=== PATIENT | female | born 1955 | race Hispanic/Latino ===

== ENCOUNTER → 2017-12-25 | Outpatient (CLI) | payer OTHER, MEDICARE ==
[~2017-12-25] MED LIST: ALBU8.5H8 IH; ASPI-1012 PO; DILT120C57 PO; FAMO20TA8 PO; HYDROXYZ HCL PO; MG T1TAB3 PO; NABU500T3 PO; NITR0.4T SL; PANT40TA25 PO; POTA20TA12 PO; PRAV20TA4 PO; PROP225C11 PO; vitamin b 12 PO
== END ==
LOC: RAH 10:19
PROVIDERS: ATTEND Family Medicine
DX: Z12.31 Encounter for screening mammogram for malignant neoplasm of breast (principal)
CPT/HCPCS: 77067

== ENCOUNTER → 2018-07-04 | Outpatient (CLI) | payer OTHER ==
[~2018-07-04] MED LIST changes: +AEC81 PO; +CYANOCOBALAMIN PO; +DILT180C63 PO; +DILTIAZEM ER PO; +HYDR-3421 PO; +NITR0.4T50 SL; +NITROGLYCERINE SL; +POTA20TA82 PO
== END | disposition home or self-care (01) ==
LOC: OIH 12:04
PROVIDERS: ATTEND Internal Medicine Cardiovascular Disease
DX: Z13.6 Encounter for screening for cardiovascular disorders (principal)
CPT/HCPCS: 75571

== ENCOUNTER → 2018-12-26 | Outpatient (CLI) | payer OTHER ==
[~2018-12-26] MED LIST changes: +DILT-3 PO; -DILT120C57 PO
== END | disposition home or self-care (01) ==
LOC: RAH 07:36
PROVIDERS: ATTEND Family Medicine
DX: Z12.31 Encounter for screening mammogram for malignant neoplasm of breast (principal)
CPT/HCPCS: 77067

== ENCOUNTER 2019-07-25 19:48 | Emergency (ER) | payer OTHER, MEDICARE ==
[~2019-07-25 19:48] MED LIST changes: -DILT-3 PO; +DILT120C95 PO
[2019-07-25] MEDS ORDERED: ONDANSETRON HCL 4 MG/2 ML VIAL ONE (20:19)
[2019-07-25 20:36] LABS: EOSINOPHILS % (AUTO) 4.1 % (0.0-8.0); HEMATOCRIT 42.3 % (36-48); MEAN CORPUSCULAR HEMOGLOBIN 28.2 pg (27.0-33.0); MEAN CORPUSCULAR VOLUME 85.7 fL (79-99); MONOCYTES % (AUTO) 7.5 % (3.0-13.0); NEUTROPHILS % (AUTO) 50.4 % (40.0-77.0); PLATELET COUNT (AUTO) 192 K/uL (130-400); RED BLOOD CELL COUNT(AUTO) 4.94 MIL/uL (4.00-5.50); RED CELL DISTRIBUTION WIDTH 15.7 % (11.0-15.5); WHITE BLOOD COUNT (AUTO) 9.1 K/uL (4.8-10.8)
[2019-07-25 20:57] LABS: INR 0.99 (0.85-1.15); PARTIAL THROMBOPLASTIN TIME 27.3 SEC (26.3-35.5); PROTHROMBIN TIME 10.4 SEC (9.6-11.6)
[2019-07-25 21:00] LABS: CREATININE 0.7 mg/dL (0.5-1.5); POTASSIUM 3.9 mmol/L (3.5-5.1)
[2019-07-25 21:04] LABS: ALBUMIN 3.8 g/dL (3.5-5.0); BILIRUBIN,TOTAL 0.7 mg/dL (0.2-1.0); TOTAL PROTEIN, SERUM 7.6 g/dL (6.0-8.3)
[2019-07-25 22:03] LABS: APPEARANCE,URINE Clear (CLEAR); BILIRUBIN,URINE Negative (NEGATIVE); COLOR,URINE Yellow (YELLOW); GLUCOSE, URINE (UA) Negative (NEGATIVE); KETONES,URINE Negative (NEGATIVE); LEUKOCYTE ESTERASE ,URINE Negative (NEGATIVE); NITRATE,URINE Negative (NEGATIVE); OCCULT BLOOD,URINE Negative (NEGATIVE); PROTEIN,URINE Negative (NEGATIVE); UROBILINOGEN,URINE 0.2 mg/dL (0.2-1.0)
[2019-07-25 22:11] LABS: AMPHET/METH SCREEN,URINE NEGATIVE (NEGATIVE); BARBITURATE SCREEN, URINE NEGATIVE (NEGATIVE); BENZODIAZEPINES SCREEN,URINE NEGATIVE (NEGATIVE); CANNABINOID SCREEN,URINE NEGATIVE (NEGATIVE); COCAINE SCREEN,URINE NEGATIVE (NEGATIVE); OPIATE SCREEN,URINE NEGATIVE (NEGATIVE); PHENCYCLIDINE SCREEN,URINE NEGATIVE (NEGATIVE)
[2019-07-25] MEDS ORDERED: FAMOTIDINE/PF 20 MG/2 ML VIAL IV ONE (22:36)
[2019-07-25] MEDS ORDERED: HYOSCYAMINE SULFATE 0.125 MG TAB.SUBL SL ONE (22:36)
== END 2019-07-25 22:50 | disposition home or self-care (01) ==
LOC: EDH 19:48
DX: R10.13 Epigastric pain (principal); R51 Headache; R11.2 Nausea with vomiting, unspecified; E78.5 Hyperlipidemia, unspecified; I10 Essential (primary) hypertension; F41.9 Anxiety disorder, unspecified; Z90.710 Acquired absence of both cervix and uterus
CPT/HCPCS: 36415; 71045; 74176; 80053; 80305; 81003; 82550; 83690; 84484; 85025; 85610; 85730; 86677; 87804 ×2; 93005; 96374; 96375; 99285; J2405; J3490

== ENCOUNTER → 2020-01-07 | Outpatient (CLI) | payer OTHER, MEDICARE ==
[~2020-01-07] MED LIST changes: +NABU-136 PO; -NABU500T3 PO; -PANT40TA25 PO; +PANT40TA54 PO
== END | disposition home or self-care (01) ==
LOC: RAH 10:00
PROVIDERS: ATTEND Family Medicine
DX: Z12.31 Encounter for screening mammogram for malignant neoplasm of breast (principal)
CPT/HCPCS: 77067

== ENCOUNTER → 2020-07-18 | Outpatient (CLI) | payer OTHER, MEDICARE | END | disposition home or self-care (01) | LOC: SHCH 10:00 | PROVIDERS: ATTEND Internal Medicine Cardiovascular Disease | DX: R01.1 Cardiac murmur, unspecified (principal) | CPT/HCPCS: 93306; 93356 ==

== ENCOUNTER 2020-08-16 14:14 | Inpatient (IN) | payer OTHER, MEDICARE ==
[~2020-08-16] VITALS: Ht 170.2 cm; Wt 148.7 kg
[2020-08-16 15:35] LABS: BASOPHILS % (AUTO) 0.6 % (0.0-5.0); EOSINOPHILS % (AUTO) 3.4 % (0.0-8.0); HEMATOCRIT 44.2 % (36-48); LYMPHOCYTES % (AUTO) 29.3 % (21.0-51.0); MEAN CORPUSCULAR HEMOGLOBIN 25.7 pg (27.0-33.0); MEAN CORPUSCULAR HGB CONC 30.3 g/dL (32.0-36.0); MEAN CORPUSCULAR VOLUME 84.7 fL (79-99); NEUTROPHILS % (AUTO) 60.6 % (40.0-77.0); PLATELET COUNT (AUTO) 249 K/uL (130-400); RED BLOOD CELL COUNT(AUTO) 5.22 MIL/uL (4.00-5.50); RED CELL DISTRIBUTION WIDTH 15.2 % (11.0-15.5); WHITE BLOOD COUNT (AUTO) 8.2 K/uL (4.8-10.8)
[2020-08-16 15:47] LABS: ABG BASE EXCESS 4.7 mmol/L (-2.0-3.0); ABG HCO3 32.4 mmol/L (21.0-28.0); ABG OXYGEN SATURATION 88.8 % (95.0-99.0); ABG PCO2 61 mmHg (32-45)
[2020-08-16 15:47] LABS: CREATININE 0.6 mg/dL (0.5-1.5); INR 0.95 (0.85-1.15); PARTIAL THROMBOPLASTIN TIME 24.8 SEC (26.3-35.5); POTASSIUM 3.6 mmol/L (3.5-5.1); PROTHROMBIN TIME 10.3 SEC (9.6-11.6)
[2020-08-16 15:51] LABS: ALBUMIN 3.9 g/dL (3.5-5.0); BILIRUBIN,TOTAL 0.5 mg/dL (0.2-1.0); TOTAL PROTEIN, SERUM 8.1 g/dL (6.0-8.3)
[2020-08-16] MEDS ORDERED: METHYLPREDNISOLONE SOD SUCC 125MG/2ML VIAL ONE (15:51)
[2020-08-16] MEDS ORDERED: CEFTRIAXONE SODIUM 1 GM ONE (15:51)
[2020-08-16] MEDS ORDERED: SODIUM CHLORIDE 0.9% 50 ML IV ONE (15:52)
[2020-08-16] MEDS ORDERED: IPRATROPIUM/ALBUTEROL SULFATE 3 ML SOLUTION IH ONE (15:53)
[2020-08-16 16:10] LABS: B-TYPE NATRIURETIC PEPTIDE 25 pg/mL (0-100)
[2020-08-16] MEDS ORDERED: AZITHROMYCIN 500MG+NS 250ML 250 ML IV ONE (20:29)
[2020-08-16] MEDS ORDERED: SODIUM CHLORIDE 0.9% 10 ML VIAL IVP SCH (21:45)
[2020-08-16] MEDS ORDERED: ONDANSETRON HCL 4 MG/2 ML VIAL IVP PRN (21:45)
[2020-08-16] MEDS ORDERED: ACETAMINOPHEN 325 MG TAB PO PRN ×2 (21:45)
[2020-08-16] MEDS ORDERED: IPRATROPIUM/ALBUTEROL SULFATE 3 ML SOLUTION IH SCH (22:00)
[2020-08-17 06:39] LABS: BASOPHILS % (AUTO) 0.2 % (0.0-5.0); HEMATOCRIT 44.3 % (36-48); LYMPHOCYTES % (AUTO) 13.1 % (21.0-51.0); MEAN CORPUSCULAR HEMOGLOBIN 25.6 pg (27.0-33.0); MEAN CORPUSCULAR HGB CONC 30.2 g/dL (32.0-36.0); MEAN CORPUSCULAR VOLUME 84.5 fL (79-99); MONOCYTES % (AUTO) 0.7 % (3.0-13.0); NEUTROPHILS % (AUTO) 85.6 % (40.0-77.0); PLATELET COUNT (AUTO) 226 K/uL (130-400); RED BLOOD CELL COUNT(AUTO) 5.24 MIL/uL (4.00-5.50); RED CELL DISTRIBUTION WIDTH 15.1 % (11.0-15.5); WHITE BLOOD COUNT (AUTO) 5.4 K/uL (4.8-10.8)
[2020-08-17 06:44] LABS: CREATININE 0.7 mg/dL (0.5-1.5); POTASSIUM 4.1 mmol/L (3.5-5.1)
[2020-08-17 06:51] LABS: ALBUMIN 3.6 g/dL (3.5-5.0); BILIRUBIN,TOTAL 0.4 mg/dL (0.2-1.0); TOTAL PROTEIN, SERUM 7.8 g/dL (6.0-8.3)
[2020-08-17 08:00] LABS: APPEARANCE,URINE Clear (CLEAR); BILIRUBIN,URINE Negative (NEGATIVE); COLOR,URINE Yellow (YELLOW); GLUCOSE, URINE (UA) Negative (NEGATIVE); KETONES,URINE 15 mg/dL (NEGATIVE); LEUKOCYTE ESTERASE ,URINE Negative (NEGATIVE); NITRATE,URINE Negative (NEGATIVE); OCCULT BLOOD,URINE Negative (NEGATIVE); PH,URINE 5.5 (5.0-8.0); PROTEIN,URINE 300 mg/dL (NEGATIVE)
[2020-08-17 08:56] LABS: BACTERIA,URINE Rare /HPF (None Seen); RBC,URINE 0-1 /HPF (0-1); WBC,URINE 0-1 /HPF (0-1)
[2020-08-17 08:57] LABS: MUCUS,URINE Few LPF (None Seen); SQUAMOUS EPITHELIAL CELL,UR Rare /HPF (0-2)
[2020-08-17] MEDS ORDERED: DEXTROSE 50%-WATER 50 ML DISP.SYRIN IV PRN (10:00)
[2020-08-17] MEDS ORDERED: GLUCAGON 1MG KIT 1 MG ML IM PRN (10:00)
[2020-08-17] MEDS ORDERED: TRAMADOL HCL 50 MG TABLET PO PRN (10:00)
[2020-08-17] MEDS ORDERED: HYDROXYZINE HCL 25 MG TABLET PO PRN (10:00)
[2020-08-17] MEDS ORDERED: ASPIRIN 81MG TAB.CHEW ONE (10:19)
[2020-08-17] MEDS ORDERED: DILTIAZEM HCL 120 MG CAP.SR.24H PO ONE (10:19)
[2020-08-17] MEDS ORDERED: INSULIN HUMULIN R 100 UNIT/ML 3ML ONE (10:19)
[2020-08-17] MEDS ORDERED: SIMVASTATIN 20 MG TABLET PO SCH ×2 (10:45→21:00)
[2020-08-17] MEDS ORDERED: ALBUTEROL INHALER 90MCG/INH IH PRN (12:30)
[2020-08-17 15:52] VITALS: BP 159/93
[2020-08-17] MEDS ORDERED: CEFTRIAXONE SODIUM 1 GM IVP SCH (16:00)
[2020-08-17] MEDS: INSULIN HUMULIN R 100 UNIT/ML 3ML SQ SCH ×3 (16:30→21:00)
[2020-08-17] MEDS: PANTOPRAZOLE SODIUM 40 MG TABLET.DR PO SCH (16:41)
[2020-08-17] MEDS: ASPIRIN 81 MG EC TAB PO SCH (16:41)
[2020-08-17] MEDS: ENOXAPARIN SODIUM 40 MG/0.4 ML SYRINGE SQ SCH (16:41)
[2020-08-17] MEDS: DILTIAZEM HCL 120 MG CAP.SR.24H PO SCH (16:42)
[2020-08-17] MEDS: ALBUTEROL INHALER 90MCG/INH IH SCH ×4 (16:42→22:00)
[2020-08-17] MEDS ORDERED: ERGO500014 PO (17:49)
[2020-08-17] MEDS ORDERED: NABU-136 PO (17:49)
[2020-08-17] MEDS ORDERED: FURO20TA4 PO (17:49)
[2020-08-17] MEDS ORDERED: DILT-116 PO (17:49)
[2020-08-17] MEDS ORDERED: IRON18TA PO (17:49)
[2020-08-17] MEDS ORDERED: NITR0.4T50 SL (17:49)
[2020-08-17] MEDS ORDERED: AEC81 PO (17:49)
[2020-08-17] MEDS ORDERED: HYOS-14 PO (17:49)
[2020-08-17] MEDS ORDERED: PANT40TA55 PO (17:49)
[2020-08-17] MEDS ORDERED: PROP225C8 PO (17:49)
[2020-08-17] MEDS ORDERED: HYDR-3421 PO (17:49)
[2020-08-17] MEDS ORDERED: POTA-79 PO (17:49)
[2020-08-17] MEDS ORDERED: PRAV40TA3 PO (17:49)
[2020-08-17 19:19] VITALS: BP 129/73
[2020-08-17] MEDS ORDERED: AZITHROMYCIN 500MG+NS 250ML 250 ML IV SCH (20:30)
[2020-08-17] MEDS: METHYLPREDNISOLONE SOD SUCC 40MG/ML 1ML IVP SCH (21:37)
[2020-08-17 23:35] VITALS: BP 116/61
[2020-08-18] MEDS: ALBUTEROL INHALER 90MCG/INH IH SCH ×3 (02:00→10:50)
[2020-08-18 03:40] VITALS: BP 130/62
[2020-08-18 05:34] LABS: MEAN CORPUSCULAR HEMOGLOBIN 25.8 pg (27.0-33.0); MEAN CORPUSCULAR HGB CONC 30.5 g/dL (32.0-36.0); MEAN CORPUSCULAR VOLUME 84.7 fL (79-99); RED BLOOD CELL COUNT(AUTO) 4.84 MIL/uL (4.00-5.50); WHITE BLOOD COUNT (AUTO) 9.2 K/uL (4.8-10.8)
[2020-08-18 06:05] LABS: CREATININE 0.6 mg/dL (0.5-1.5); POTASSIUM 4.6 mmol/L (3.5-5.1)
[2020-08-18] MEDS: INSULIN HUMULIN R 100 UNIT/ML 3ML SQ SCH ×2 (07:30→11:30)
[2020-08-18 07:42] VITALS: BP 118/53
[2020-08-18] MEDS: ENOXAPARIN SODIUM 40 MG/0.4 ML SYRINGE SQ SCH (09:17)
[2020-08-18] MEDS: METHYLPREDNISOLONE SOD SUCC 40MG/ML 1ML IVP SCH (09:17)
[2020-08-18] MEDS: ASPIRIN 81 MG EC TAB PO SCH (09:17)
[2020-08-18] MEDS: PANTOPRAZOLE SODIUM 40 MG TABLET.DR PO SCH (09:17)
[2020-08-18] MEDS: DILTIAZEM HCL 120 MG CAP.SR.24H PO SCH (09:37)
[2020-08-18] MEDS ORDERED: PRED20TA3 PO (11:36)
[2020-08-18] MEDS ORDERED: DOXY100C40 PO (11:36)
[2020-08-18 12:20] VITALS: BP 127/47
== END 2020-08-18 13:30 | disposition home or self-care (01) | DRG 177 ==
LOC: EDH 14:14 → EDHIP 18:59 → 2AH 08-17 15:24
PROVIDERS: ADMIT Internal Medicine Critical Care Medicine; ATTEND Internal Medicine Critical Care Medicine
PROC: 5A09357 Assistance with Respiratory Ventilation, Less than 24 Consecutive Hours, Continuous Positive Airway Pressure (ICD-10-PCS; principal; 2020-08-18)
DX: J15.6 Pneumonia due to other Gram-negative bacteria (principal); J96.01 Acute respiratory failure with hypoxia; J44.1 Chronic obstructive pulmonary disease with (acute) exacerbation; J45.901 Unspecified asthma with (acute) exacerbation; Z68.43 Body mass index [BMI] 50.0-59.9, adult; J44.0 Chronic obstructive pulmonary disease with (acute) lower respiratory infection; E11.9 Type 2 diabetes mellitus without complications; K29.70 Gastritis, unspecified, without bleeding; R51.9 Headache, unspecified; I10 Essential (primary) hypertension; Z20.828 Contact with and (suspected) exposure to other viral communicable diseases; E78.5 Hyperlipidemia, unspecified; E66.9 Obesity, unspecified; F41.9 Anxiety disorder, unspecified; Z86.19 Personal history of other infectious and parasitic diseases; Z99.81 Dependence on supplemental oxygen; Z90.49 Acquired absence of other specified parts of digestive tract; Z90.710 Acquired absence of both cervix and uterus; Z79.899 Other long term (current) drug therapy; Z79.4 Long term (current) use of insulin; Z79.82 Long term (current) use of aspirin
CPT/HCPCS: 36415; 36600; 71045; 71250; 80048; 80053; 81001; 82550; 82803; 82948; 83605; 83880; 84484; 85025; 85027; 85610; 85730; 87040; 87426; 87804; 87880; 93005; 94640; 94660; G0378; J0456; J0696; J1650; J1815; J2920; J2930; U0003

== ENCOUNTER → 2021-01-30 | Outpatient (CLI) | payer OTHER, MEDICARE ==
[~2021-01-30] MED LIST changes: -ALBU8.5H8 IH; -ASPI-1012 PO; -CYANOCOBALAMIN PO; +DILT-116 PO; -DILT120C95 PO; -DILT180C63 PO; -DILTIAZEM ER PO; +DOXY100C40 PO; +ERGO500014 PO; -FAMO20TA8 PO; +FURO20TA4 PO; -HYDROXYZ HCL PO; +HYOS-14 PO; +IRON18TA PO; -MG T1TAB3 PO; -NABU-136 PO; +NABU-141 PO; -NITR0.4T SL; -NITROGLYCERINE SL; -PANT40TA54 PO; +PANT40TA55 PO; +POTA-79 PO; -POTA20TA12 PO; -POTA20TA82 PO; -PRAV20TA4 PO; +PRAV40TA3 PO; +PRED20TA3 PO; -PROP225C11 PO; +PROP225C8 PO; -vitamin b 12 PO
== END | disposition home or self-care (01) ==
LOC: RAH 13:40
PROVIDERS: ATTEND Family Medicine
DX: Z12.31 Encounter for screening mammogram for malignant neoplasm of breast (principal)
CPT/HCPCS: 77067

== ENCOUNTER → 2021-07-12 | Outpatient (CLI) | payer OTHER ==
[~2021-07-12] VITALS: Ht 17.8 cm; Wt 151.0 kg
[~2021-07-12] MED LIST changes: +DOXY-336 PO; -DOXY100C40 PO; -ERGO500014 PO; +ERGO500093 PO
== END | disposition home or self-care (01) ==
LOC: DTH 10:42
PROVIDERS: ATTEND Surgery
DX: G47.33 Obstructive sleep apnea (adult) (pediatric) (principal); I10 Essential (primary) hypertension; M19.91 Primary osteoarthritis, unspecified site; E78.00 Pure hypercholesterolemia, unspecified; K21.9 Gastro-esophageal reflux disease without esophagitis; E66.01 Morbid (severe) obesity due to excess calories
CPT/HCPCS: 97802

== ENCOUNTER 2021-07-17 06:45 | Day surgery (SDC) | payer OTHER, MEDICARE ==
[~2021-07-17] VITALS: Ht 170.2 cm; Wt 149.7 kg
[2021-07-17] MEDS ORDERED: 0.9%NACL 1000ML 1,000 ML IV ONE (07:25)
[2021-07-17] MEDS ORDERED: GLYCOPYRROLATE 1 MG/5 ML SYRINGE ONE (08:01)
[2021-07-17] MEDS ORDERED: PROPOFOL 10 MG/ML 20ML VIAL IV ONE (08:01)
[2021-07-17] MEDS ORDERED: MIDAZOLAM HCL 1 MG/ML 2ML VIAL ONE (08:01)
[2021-07-17] MEDS ORDERED: KETAMINE 50MG/ML SYRINGE 50 MG/ML DISP.SYRIN IV ONE (08:01)
[2021-07-17] MEDS ORDERED: LIDOCAINE PF 100MG/5ML (2%) SYRINGE 5ML ONE (08:01)
[2021-07-17 08:10] VITALS: BP 147/80
[2021-07-17 08:48] VITALS: BP 156/92
[2021-07-17 08:53] VITALS: BP 181/82
[2021-07-17 08:58] VITALS: BP 134/74
[2021-07-17 09:03] VITALS: BP 127/82
[2021-07-17 09:08] VITALS: BP 135/72
== END 2021-07-17 09:18 | disposition home or self-care (01) ==
LOC: DAH 06:45 → ENDO 06:45
PROVIDERS: ATTEND Surgery
DX: K21.9 Gastro-esophageal reflux disease without esophagitis (principal); Z20.822 Contact with and (suspected) exposure to COVID-19; J45.909 Unspecified asthma, uncomplicated; E66.01 Morbid (severe) obesity due to excess calories; E78.5 Hyperlipidemia, unspecified; I10 Essential (primary) hypertension; Z90.49 Acquired absence of other specified parts of digestive tract; Z90.710 Acquired absence of both cervix and uterus; Z98.890 Other specified postprocedural states; Z82.49 Family history of ischemic heart disease and other diseases of the circulatory system; Z80.7 Family history of other malignant neoplasms of lymphoid, hematopoietic and related tissues; Z68.43 Body mass index [BMI] 50.0-59.9, adult
CPT/HCPCS: 43235; 71045; 87635; 93005; A4215 ×2; A4221; A4222; A4223; A4606; A4620; A4663; C9803; J2001; J2250; J2704; J3490 ×2; J7030

== ENCOUNTER → 2021-09-04 | Outpatient (CLI) | payer OTHER | END | disposition home or self-care (01) | LOC: DTH 10:18 | PROVIDERS: ATTEND Surgery | DX: Z71.3 Dietary counseling and surveillance (principal); G47.33 Obstructive sleep apnea (adult) (pediatric); E66.01 Morbid (severe) obesity due to excess calories; I10 Essential (primary) hypertension; M19.91 Primary osteoarthritis, unspecified site; E78.00 Pure hypercholesterolemia, unspecified; K21.9 Gastro-esophageal reflux disease without esophagitis; Z68.43 Body mass index [BMI] 50.0-59.9, adult | CPT/HCPCS: 97803 ==

== ENCOUNTER 2021-10-02 05:11 | Emergency (ER) | payer OTHER, MEDICARE ==
[~2021-10-02] VITALS: Ht 170.2 cm; Wt 149.7 kg
[2021-10-02 05:21] VITALS: BP 155/74
[2021-10-02] MEDS ORDERED: ACETAMINOPHEN 500 MG TABLET ONE (05:30)
[2021-10-02] MEDS ORDERED: ACETAMINOPHEN 500 MG TABLET PO ONE (05:30)
[2021-10-02] MEDS ORDERED: IPRATROPIUM/ALBUTEROL SULFATE 3 ML SOLUTION IH ONE (06:00)
[2021-10-02] MEDS ORDERED: ACET-66 PO (06:16)
[2021-10-02] MEDS ORDERED: ALBU18HF7 IH (06:16)
[2021-10-02] MEDS ORDERED: OSEL75 PO (06:16)
[2021-10-02] MEDS ORDERED: PRED5TAB PO (06:16)
[2021-10-02] MEDS ORDERED: ALBUTEROL 0.083% 2.5 MG/3 ML INH IH SCH (06:30)
== END 2021-10-02 06:54 | disposition home or self-care (01) ==
LOC: EDH 05:11
DX: J10.1 Influenza due to other identified influenza virus with other respiratory manifestations (principal); Z20.822 Contact with and (suspected) exposure to COVID-19; J45.909 Unspecified asthma, uncomplicated; I10 Essential (primary) hypertension; F41.9 Anxiety disorder, unspecified; E78.00 Pure hypercholesterolemia, unspecified; Z79.1 Long term (current) use of non-steroidal anti-inflammatories (NSAID); Z79.52 Long term (current) use of systemic steroids; Z79.82 Long term (current) use of aspirin; Z79.899 Other long term (current) drug therapy; Z90.49 Acquired absence of other specified parts of digestive tract
CPT/HCPCS: 71045; 87635; 87804 ×2; 87880; 93005; 94640; 99285; C9803

== ENCOUNTER 2022-01-08 06:45 | Inpatient (IN) | payer OTHER, MEDICARE ==
[2022-01-02 11:59] LABS: BASOPHILS % (AUTO) 0.9 % (0.0-5.0); EOSINOPHILS % (AUTO) 3.5 % (0.0-8.0); HEMATOCRIT 40.8 % (36-48); LYMPHOCYTES % (AUTO) 36.9 % (21.0-51.0); MEAN CORPUSCULAR HGB CONC 29.9 g/dL (32.0-36.0); MEAN CORPUSCULAR VOLUME 80.2 fL (79-99); MONOCYTES % (AUTO) 6.8 % (3.0-13.0); NEUTROPHILS % (AUTO) 51.6 % (40.0-77.0); PLATELET COUNT (AUTO) 218 K/uL (130-400); RED BLOOD CELL COUNT(AUTO) 5.09 MIL/uL (4.00-5.50); WHITE BLOOD COUNT (AUTO) 6.9 K/uL (4.8-10.8)
[2022-01-02 12:17] LABS: CREATININE 0.5 mg/dL (0.5-1.5); POTASSIUM 4.1 mmol/L (3.5-5.1)
[2022-01-02 12:51] LABS: INR 1.06 (0.85-1.15); PARTIAL THROMBOPLASTIN TIME 25.5 SEC (26.3-35.5)
[~2022-01-08] VITALS: Ht 170.2 cm; Wt 148.3 kg
[2022-01-08] VITALS (25 sets, daily range): BP systolic 142–190; BP diastolic 40–81
[2022-01-08] MEDS: CEFAZOLIN SODIUM 1 GM VIAL IVP SCH ×4 (06:00→19:14)
[~2022-01-08 06:45] MED LIST changes: +ALBU0.63 IH; +CHOL-34 PO; +CYAN-52 PO; -DOXY-336 PO; -ERGO500093 PO; -HYOS-14 PO; -IRON18TA PO; +MONT-39 PO; -NABU-141 PO; -NITR0.4T50 SL; -PRED20TA3 PO
[2022-01-08] MEDS ORDERED: LACTATED RINGERS 1000ML 1,000 ML IV ONE (07:01)
[2022-01-08] MEDS ORDERED: FAMOTIDINE 20MG VIAL IV ONE (07:27)
[2022-01-08] MEDS ORDERED: HYDROMORPHONE 1 MG INJ ONE (07:28)
[2022-01-08] MEDS ORDERED: PROPOFOL 10 MG/ML 20ML VIAL IV ONE ×2 (07:35→10:31)
[2022-01-08] MEDS ORDERED: ROCURONIUM 10MG/1ML SYR 10 MG/ML ML ONE (07:35)
[2022-01-08] MEDS ORDERED: SUCCINYLCHOLINE 200MG/10ML SYR ONE (07:35)
[2022-01-08] MEDS ORDERED: FENTANYL CITRATE PF 50 MCG/1 ML 5ML AMP IV ONE (07:35)
[2022-01-08] MEDS ORDERED: GLYCOPYRROLATE 1 MG/5 ML SYRINGE ONE (07:35)
[2022-01-08] MEDS ORDERED: LIDOCAINE PF 100MG/5ML (2%) SYRINGE 5ML ONE (07:35)
[2022-01-08] MEDS ORDERED: MIDAZOLAM HCL 1 MG/ML 2ML VIAL ONE (07:35)
[2022-01-08] MEDS ORDERED: NEOSTIGMINE 5MG/5ML SYR IV ONE (09:38)
[2022-01-08] MEDS ORDERED: ONDANSETRON 4MG INJ ONE ×2 (09:38→10:31)
[2022-01-08] MEDS ORDERED: ALBUTEROL INHALER 90MCG/INH IH ONE (09:51)
[2022-01-08] MEDS ORDERED: BUPIVACAINE/PF 0.5% 30ML VIAL ONE (10:36)
[2022-01-08] MEDS: LACTATED RINGERS 1000ML 1,000 ML IV SCH ×2 (11:00→18:08)
[2022-01-08] MEDS ORDERED: KETOROLAC 30MG VIAL (30MG/ML) IM PRN (11:00)
[2022-01-08] MEDS ORDERED: ONDANSETRON 4MG INJ IVP PRN (11:00)
[2022-01-08] MEDS ORDERED: MORPHINE 5 MG/ML VIAL (5MG OR GREATER DOSE) IVP PRN (11:00)
[2022-01-08] MEDS ORDERED: SUGAMMADEX SODIUM 200 MG/2 ML VIAL IV ONE (11:02)
[2022-01-08] MEDS: INSULIN HUMULIN R 100 UNIT/ML 3ML SQ SCH ×3 (11:30→21:00)
[2022-01-08] MEDS ORDERED: MEPERIDINE-PF 25 MG/ML SYG ONE (11:45)
[2022-01-08] MEDS ORDERED: HYDRALAZINE 20MG/ML VIAL IV PRN (15:00)
[2022-01-08] MEDS ORDERED: IPRATROPIUM 0.5 MG/2.5 ML INH IH PRN (15:00)
[2022-01-08 18:43] LABS: BASOPHILS % (AUTO) 0.3 % (0.0-5.0); LYMPHOCYTES % (AUTO) 6.5 % (21.0-51.0); MEAN CORPUSCULAR HEMOGLOBIN 24.7 pg (27.0-33.0); MEAN CORPUSCULAR HGB CONC 30.5 g/dL (32.0-36.0); MEAN CORPUSCULAR VOLUME 80.8 fL (79-99); MONOCYTES % (AUTO) 4.8 % (3.0-13.0); NEUTROPHILS % (AUTO) 88.2 % (40.0-77.0); PLATELET COUNT (AUTO) 196 K/uL (130-400); RED BLOOD CELL COUNT(AUTO) 4.58 MIL/uL (4.00-5.50); RED CELL DISTRIBUTION WIDTH 17.8 % (11.0-15.5); WHITE BLOOD COUNT (AUTO) 12.1 K/uL (4.8-10.8)
[2022-01-08 18:57] LABS: ALBUMIN 3.2 g/dL (3.5-5.0); BILIRUBIN,TOTAL 0.4 mg/dL (0.2-1.0); CREATININE 0.8 mg/dL (0.5-1.5); MAGNESIUM 2.4 mg/dL (1.80-2.40); POTASSIUM 4.2 mmol/L (3.5-5.1)
[2022-01-08] MEDS ORDERED: HYDROXYZINE 25 MG TABLET PO PRN (20:00)
[2022-01-08] MEDS ORDERED: PROPAFENONE HCL 225 MG PO SCH (20:00)
[2022-01-08] MEDS: PRAVASTATIN 40MG PO SCH (21:00)
[2022-01-08] MEDS ORDERED: NON-FORMULARY MEDICATION 1 EACH (Pravastatin Sodium 40 MG) PO SCH (21:00)
[2022-01-08] MEDS: MONTELUKAST SODIUM 10 MG TAB PO SCH (21:39)
[2022-01-08] MEDS: PROPAFENONE HCL 150 MG TABLET PO SCH (21:40)
[2022-01-08] MEDS: FAMOTIDINE 20MG VIAL IV SCH (21:51)
[2022-01-08] MEDS: ENOXAPARIN SODIUM 30 MG/0.3 ML SQ SCH (21:53)
[2022-01-08] MEDS: BUDESONIDE 0.5 MG/2 ML INH IH SCH (22:19)
[2022-01-09] MEDS: LACTATED RINGERS 1000ML 1,000 ML IV SCH (03:15)
[2022-01-09 03:39] VITALS: BP 157/81
[2022-01-09 04:10] LABS: BASOPHILS % (AUTO) 0.6 % (0.0-5.0); EOSINOPHILS % (AUTO) 0.1 % (0.0-8.0); HEMATOCRIT 36.1 % (36-48); LYMPHOCYTES % (AUTO) 13.7 % (21.0-51.0); MEAN CORPUSCULAR HEMOGLOBIN 24.4 pg (27.0-33.0); MEAN CORPUSCULAR HGB CONC 30.2 g/dL (32.0-36.0); MEAN CORPUSCULAR VOLUME 80.8 fL (79-99); MONOCYTES % (AUTO) 9.2 % (3.0-13.0); NEUTROPHILS % (AUTO) 76.1 % (40.0-77.0); PLATELET COUNT (AUTO) 206 K/uL (130-400); RED BLOOD CELL COUNT(AUTO) 4.47 MIL/uL (4.00-5.50); RED CELL DISTRIBUTION WIDTH 17.7 % (11.0-15.5); WHITE BLOOD COUNT (AUTO) 10.8 K/uL (4.8-10.8)
[2022-01-09] MEDS: PROPAFENONE HCL 150 MG TABLET PO SCH ×3 (04:20→20:00)
[2022-01-09 04:21] LABS: CREATININE 0.7 mg/dL (0.5-1.5); POTASSIUM 3.9 mmol/L (3.5-5.1)
[2022-01-09] MEDS: BUDESONIDE 0.5 MG/2 ML INH IH SCH ×2 (06:18→19:03)
[2022-01-09] MEDS: INSULIN HUMULIN R 100 UNIT/ML 3ML SQ SCH ×4 (06:51→20:02)
[2022-01-09 08:12] VITALS: BP 165/82
[2022-01-09] MEDS: DILTIAZEM 180MG SR CAP PO SCH (08:49)
[2022-01-09] MEDS: FAMOTIDINE 20MG VIAL IV SCH ×2 (08:49→20:00)
[2022-01-09] MEDS: ENOXAPARIN SODIUM 30 MG/0.3 ML SQ SCH ×2 (08:50→20:02)
[2022-01-09] MEDS: KCL 20 MEQ ERTAB PO SCH (08:50)
[2022-01-09] MEDS: FUROSEMIDE 20 MG TABLET PO SCH (08:50)
[2022-01-09] MEDS: CYANOCOBALAMIN (VITAMIN B-12) 1,000 MCG TABLET PO SCH (08:50)
[2022-01-09] MEDS: VITAMIN D 25 MCG PO SCH (08:51)
[2022-01-09] MEDS ORDERED: NON-FORMULARY MEDICATION 1 EACH (Diltiazem HCl (Diltiazem ER) 180 MG) PO SCH (09:00)
[2022-01-09] MEDS ORDERED: NON-FORMULARY MEDICATION 1 EACH (Potassium Chloride 20 MEQ) PO SCH (09:00)
[2022-01-09] MEDS ORDERED: NON-FORMULARY MEDICATION 1 EACH (Cholecalciferol (Vitamin D3) (Vitamin D3) 25 MCG) PO SCH (09:00)
[2022-01-09 10:18] LABS: HEMOGLOBIN A1C 7.2 % (4.0-6.0)
[2022-01-09 11:40] VITALS: BP 136/73
[2022-01-09 16:22] VITALS: BP 142/67
[2022-01-09] MEDS: MONTELUKAST SODIUM 10 MG TAB PO SCH (20:01)
[2022-01-09] MEDS: PRAVASTATIN 40MG PO SCH (20:02)
[2022-01-09 20:40] VITALS: BP 146/82
[2022-01-09 23:30] VITALS: BP 132/75
[2022-01-10 04:10] VITALS: BP 122/68
[2022-01-10 04:42] LABS: BASOPHILS % (AUTO) 0.6 % (0.0-5.0); EOSINOPHILS % (AUTO) 2.1 % (0.0-8.0); HEMATOCRIT 34.2 % (36-48); LYMPHOCYTES % (AUTO) 19.3 % (21.0-51.0); MEAN CORPUSCULAR HEMOGLOBIN 24.7 pg (27.0-33.0); MEAN CORPUSCULAR HGB CONC 30.4 g/dL (32.0-36.0); MEAN CORPUSCULAR VOLUME 81.2 fL (79-99); MONOCYTES % (AUTO) 8.6 % (3.0-13.0); NEUTROPHILS % (AUTO) 69.3 % (40.0-77.0); PLATELET COUNT (AUTO) 195 K/uL (130-400); RED BLOOD CELL COUNT(AUTO) 4.21 MIL/uL (4.00-5.50); RED CELL DISTRIBUTION WIDTH 17.5 % (11.0-15.5); WHITE BLOOD COUNT (AUTO) 9.5 K/uL (4.8-10.8)
[2022-01-10 04:54] LABS: CREATININE 0.6 mg/dL (0.5-1.5); POTASSIUM 3.8 mmol/L (3.5-5.1)
[2022-01-10] MEDS: PROPAFENONE HCL 150 MG TABLET PO SCH ×3 (05:27→20:22)
[2022-01-10] MEDS: BUDESONIDE 0.5 MG/2 ML INH IH SCH ×2 (06:20→19:06)
[2022-01-10] MEDS: INSULIN HUMULIN R 100 UNIT/ML 3ML SQ SCH ×4 (06:35→20:25)
[2022-01-10 07:33] VITALS: BP 138/62
[2022-01-10] MEDS: VITAMIN D 25 MCG PO SCH (09:00)
[2022-01-10] MEDS: CYANOCOBALAMIN (VITAMIN B-12) 1,000 MCG TABLET PO SCH (09:29)
[2022-01-10] MEDS: DILTIAZEM 180MG SR CAP PO SCH (09:29)
[2022-01-10] MEDS: FAMOTIDINE 20MG VIAL IV SCH ×2 (09:29→20:22)
[2022-01-10] MEDS: FUROSEMIDE 20 MG TABLET PO SCH (09:29)
[2022-01-10] MEDS: ENOXAPARIN SODIUM 30 MG/0.3 ML SQ SCH ×2 (09:30→20:24)
[2022-01-10] MEDS: KCL 20 MEQ ERTAB PO SCH (09:30)
[2022-01-10 11:10] VITALS: BP 147/62
[2022-01-10 15:57] VITALS: BP 136/69
[2022-01-10 20:03] VITALS: BP 141/55
[2022-01-10] MEDS: MONTELUKAST SODIUM 10 MG TAB PO SCH (20:22)
[2022-01-10] MEDS: PRAVASTATIN 40MG PO SCH (20:25)
[2022-01-10 23:30] VITALS: BP 144/74
[2022-01-11] MEDS: PROPAFENONE HCL 150 MG TABLET PO SCH ×3 (03:23→20:29)
[2022-01-11 04:02] VITALS: BP 139/73
[2022-01-11 05:05] LABS: BASOPHILS % (AUTO) 0.8 % (0.0-5.0); EOSINOPHILS % (AUTO) 4.7 % (0.0-8.0); HEMATOCRIT 33.9 % (36-48); LYMPHOCYTES % (AUTO) 20.9 % (21.0-51.0); MEAN CORPUSCULAR HEMOGLOBIN 23.9 pg (27.0-33.0); MEAN CORPUSCULAR HGB CONC 29.2 g/dL (32.0-36.0); MEAN CORPUSCULAR VOLUME 81.9 fL (79-99); MONOCYTES % (AUTO) 7.2 % (3.0-13.0); NEUTROPHILS % (AUTO) 66.1 % (40.0-77.0); PLATELET COUNT (AUTO) 181 K/uL (130-400); RED BLOOD CELL COUNT(AUTO) 4.14 MIL/uL (4.00-5.50); RED CELL DISTRIBUTION WIDTH 17.3 % (11.0-15.5); WHITE BLOOD COUNT (AUTO) 8.9 K/uL (4.8-10.8)
[2022-01-11 05:08] LABS: CREATININE 0.6 mg/dL (0.5-1.5); POTASSIUM 3.7 mmol/L (3.5-5.1)
[2022-01-11] MEDS: INSULIN HUMULIN R 100 UNIT/ML 3ML SQ SCH ×4 (06:16→20:31)
[2022-01-11] MEDS: BUDESONIDE 0.5 MG/2 ML INH IH SCH ×2 (06:24→19:07)
[2022-01-11 07:50] VITALS: BP 153/68
[2022-01-11] MEDS: ENOXAPARIN SODIUM 30 MG/0.3 ML SQ SCH ×2 (08:00→20:30)
[2022-01-11] MEDS: FAMOTIDINE 20MG VIAL IV SCH ×2 (08:00→20:29)
[2022-01-11] MEDS: KCL 20 MEQ ERTAB PO SCH (08:00)
[2022-01-11] MEDS: DILTIAZEM 180MG SR CAP PO SCH (08:01)
[2022-01-11] MEDS: CYANOCOBALAMIN (VITAMIN B-12) 1,000 MCG TABLET PO SCH (08:01)
[2022-01-11] MEDS: FUROSEMIDE 20 MG TABLET PO SCH (08:01)
[2022-01-11] MEDS: VITAMIN D 25 MCG PO SCH (09:00)
[2022-01-11 11:33] VITALS: BP 135/58
[2022-01-11] MEDS: SIMETHICONE 80 MG TAB.CHEW PO PRN (11:59)
[2022-01-11 16:28] VITALS: BP 126/62
[2022-01-11 19:18] VITALS: BP 140/54
[2022-01-11] MEDS: MONTELUKAST SODIUM 10 MG TAB PO SCH (20:29)
[2022-01-11] MEDS: PRAVASTATIN 40MG PO SCH (20:30)
[2022-01-11 22:18] VITALS: BP 143/69
[2022-01-12] MEDS: PROPAFENONE HCL 150 MG TABLET PO SCH ×2 (03:36→12:50)
[2022-01-12] MEDS: SIMETHICONE 80 MG TAB.CHEW PO PRN ×2 (03:36→08:15)
[2022-01-12 04:12] VITALS: BP 129/49
[2022-01-12 04:16] LABS: BASOPHILS % (AUTO) 0.7 % (0.0-5.0); EOSINOPHILS % (AUTO) 4.8 % (0.0-8.0); HEMATOCRIT 33.4 % (36-48); LYMPHOCYTES % (AUTO) 20.2 % (21.0-51.0); MEAN CORPUSCULAR HEMOGLOBIN 24.5 pg (27.0-33.0); MEAN CORPUSCULAR HGB CONC 30.5 g/dL (32.0-36.0); MEAN CORPUSCULAR VOLUME 80.3 fL (79-99); MONOCYTES % (AUTO) 7.2 % (3.0-13.0); NEUTROPHILS % (AUTO) 66.8 % (40.0-77.0); PLATELET COUNT (AUTO) 201 K/uL (130-400); RED BLOOD CELL COUNT(AUTO) 4.16 MIL/uL (4.00-5.50); WHITE BLOOD COUNT (AUTO) 7.5 K/uL (4.8-10.8)
[2022-01-12 04:26] LABS: CREATININE 0.6 mg/dL (0.5-1.5); POTASSIUM 3.6 mmol/L (3.5-5.1)
[2022-01-12] MEDS: INSULIN HUMULIN R 100 UNIT/ML 3ML SQ SCH ×2 (05:13→11:23)
[2022-01-12] MEDS: BUDESONIDE 0.5 MG/2 ML INH IH SCH (06:31)
[2022-01-12] MEDS: FAMOTIDINE 20MG VIAL IV SCH (08:14)
[2022-01-12] MEDS: KCL 20 MEQ ERTAB PO SCH (08:15)
[2022-01-12] MEDS: CYANOCOBALAMIN (VITAMIN B-12) 1,000 MCG TABLET PO SCH (08:15)
[2022-01-12] MEDS: FUROSEMIDE 20 MG TABLET PO SCH (08:15)
[2022-01-12] MEDS: ENOXAPARIN SODIUM 30 MG/0.3 ML SQ SCH (08:16)
[2022-01-12] MEDS: DILTIAZEM 180MG SR CAP PO SCH (08:16)
[2022-01-12 08:21] VITALS: BP 130/57
[2022-01-12] MEDS: VITAMIN D 25 MCG PO SCH (09:00)
[2022-01-12 11:08] VITALS: BP 150/71
[2022-01-12] MEDS ORDERED: SIME40DR63 PO ×2 (13:33→14:37)
[2022-01-12] MEDS ORDERED: DOCU240C25 PO (13:33)
== END 2022-01-12 14:09 | disposition home or self-care (01) | DRG 619 ==
LOC: DAHIP 06:45 → EDSTATUS 10:50 → 4AH 12:02
PROVIDERS: ADMIT Surgery; ATTEND Surgery
PROC: 0DB64ZZ Excision of Stomach, Percutaneous Endoscopic Approach (ICD-10-PCS; 2022-01-08)
PROC: 5A09357 Assistance with Respiratory Ventilation, Less than 24 Consecutive Hours, Continuous Positive Airway Pressure (ICD-10-PCS; 2022-01-08)
PROC: 0D164ZA Bypass Stomach to Jejunum, Percutaneous Endoscopic Approach (ICD-10-PCS; principal; 2022-01-08 08:00)
PROC: 5A09357 Assistance with Respiratory Ventilation, Less than 24 Consecutive Hours, Continuous Positive Airway Pressure (ICD-10-PCS; 2022-01-09)
PROC: 5A09357 Assistance with Respiratory Ventilation, Less than 24 Consecutive Hours, Continuous Positive Airway Pressure (ICD-10-PCS; 2022-01-10)
DX: E66.01 Morbid (severe) obesity due to excess calories (principal); J96.22 Acute and chronic respiratory failure with hypercapnia; J90 Pleural effusion, not elsewhere classified; I10 Essential (primary) hypertension; E78.5 Hyperlipidemia, unspecified; Z99.81 Dependence on supplemental oxygen; J44.9 Chronic obstructive pulmonary disease, unspecified; G47.33 Obstructive sleep apnea (adult) (pediatric); Z68.43 Body mass index [BMI] 50.0-59.9, adult; Z82.49 Family history of ischemic heart disease and other diseases of the circulatory system; Z82.3 Family history of stroke; Z82.5 Family history of asthma and other chronic lower respiratory diseases; Z82.0 Family history of epilepsy and other diseases of the nervous system; Z83.3 Family history of diabetes mellitus; Z79.899 Other long term (current) drug therapy; K21.9 Gastro-esophageal reflux disease without esophagitis
CPT/HCPCS: 36415; 43235; 71045; 74018; 80048; 80053; 82948; 83036; 83735; 85025; 85610; 85730; 86850; 86900; 86901; 87635; 93005; 94640; 94664; 97039; G0378; J0330; J0690; J1170; J1650; J1885; J2001; J2175; J2250; J2270; J2405; J2704; J2710; J3010; J3490; J7030; J7120

== ENCOUNTER → 2022-02-12 | Outpatient (CLI) | payer OTHER, MEDICARE ==
[~2022-02-12] MED LIST changes: +DOCU240C25 PO; +SIME40DR63 PO
== END | disposition home or self-care (01) ==
LOC: RAH 11:24
PROVIDERS: ATTEND Family Medicine
DX: Z12.31 Encounter for screening mammogram for malignant neoplasm of breast (principal)
CPT/HCPCS: 77067

== ENCOUNTER → 2022-10-15 | Outpatient (CLI) | payer OTHER, MEDICARE ==
[2022-10-15 13:05] LABS: BASOPHILS % (AUTO) 1.2 % (0.0-5.0); EOSINOPHILS % (AUTO) 3.9 % (0.0-8.0); HEMATOCRIT 42.3 % (36-48); LYMPHOCYTES % (AUTO) 43.8 % (21.0-51.0); MEAN CORPUSCULAR HGB CONC 32.4 g/dL (32.0-36.0); MEAN CORPUSCULAR VOLUME 89.6 fL (79-99); MONOCYTES % (AUTO) 6.1 % (3.0-13.0); PLATELET COUNT (AUTO) 148 K/uL (130-400); RED BLOOD CELL COUNT(AUTO) 4.72 MIL/uL (4.00-5.50); WHITE BLOOD COUNT (AUTO) 5.1 K/uL (4.8-10.8)
[2022-10-15 13:13] LABS: HEMOGLOBIN A1C 5.6 % (4.0-6.0)
[2022-10-15 13:23] LABS: CREATININE 0.7 mg/dL (0.5-1.5); POTASSIUM 3.6 mmol/L (3.5-5.1)
== END | disposition home or self-care (01) ==
LOC: LAB 09:05
PROVIDERS: ATTEND Physician Assistant
DX: I10 Essential (primary) hypertension (principal); E78.5 Hyperlipidemia, unspecified; R01.1 Cardiac murmur, unspecified; Z79.899 Other long term (current) drug therapy
CPT/HCPCS: 36415; 80048; 80061; 83036; 83735; 83880; 85025

== ENCOUNTER → 2022-11-30 | Outpatient (CLI) | payer OTHER, MEDICARE | END | disposition home or self-care (01) | LOC: SHCH 14:39 | PROVIDERS: ATTEND Internal Medicine Cardiovascular Disease | DX: I11.9 Hypertensive heart disease without heart failure (principal); I25.10 Atherosclerotic heart disease of native coronary artery without angina pectoris; R01.1 Cardiac murmur, unspecified; E78.5 Hyperlipidemia, unspecified | CPT/HCPCS: 93306 ==